=== PATIENT | male | born 1955 | race Caucasian/White ===

== ENCOUNTER 2018-06-23 11:00 | Inpatient (IN) | payer OTHER ==
[~2018-06-23] VITALS: Ht 172.7 cm; Wt 95.3 kg
[2018-07-01] MEDS ORDERED: NEURONTIN800 MG PO (11:25)
[2018-07-01] MEDS ORDERED: COLACE100 MG PO (11:25)
[2018-07-01] MEDS ORDERED: AMOX-CLAV 875-1 EACH PO (11:26)
[2018-07-01] MEDS ORDERED: PERCOCET 5-3251 EACH PO (11:27)
[2018-07-01] MEDS ORDERED: CLONAZEPAM1 MG PO (11:28)
[2018-07-01] MEDS ORDERED: MEDROLPACK PO (11:28)
== END 2018-07-02 14:32 | DRG 455 ==
LOC: PED 07-01 04:53 → O/R 07-01 04:53 → SURH 07-01 07:00 → PED 07-01 13:51
PROVIDERS: Orthopaedic Surgery Orthopaedic Surgery of the Spine
PROC: 0SG1071 Fusion of 2 or more Lumbar Vertebral Joints with Autologous Tissue Substitute, Posterior Approach, Posterior Column, Open Approach (ICD-10-PCS; 2018-07-01)
PROC: 0SG10A0 Fusion of 2 or more Lumbar Vertebral Joints with Interbody Fusion Device, Anterior Approach, Anterior Column, Open Approach (ICD-10-PCS; 2018-07-01)
PROC: 0ST40ZZ Resection of Lumbosacral Disc, Open Approach (ICD-10-PCS; 2018-07-01)
PROC: 0SG30AJ Fusion of Lumbosacral Joint with Interbody Fusion Device, Posterior Approach, Anterior Column, Open Approach (ICD-10-PCS; 2018-07-01)
PROC: 07DS3ZZ Extraction of Vertebral Bone Marrow, Percutaneous Approach (ICD-10-PCS; 2018-07-01)
PROC: 0SG30A0 Fusion of Lumbosacral Joint with Interbody Fusion Device, Anterior Approach, Anterior Column, Open Approach (ICD-10-PCS; principal; 2018-07-01 07:00)
DX: M43.17 Spondylolisthesis, lumbosacral region (principal); M48.07 Spinal stenosis, lumbosacral region; M47.27 Other spondylosis with radiculopathy, lumbosacral region; M51.17 Intervertebral disc disorders with radiculopathy, lumbosacral region; M41.87 Other forms of scoliosis, lumbosacral region